=== PATIENT | female | born 1995 ===

== ENCOUNTER 2017-11-25 13:16 | Emergency (ER) | payer OTHER ==
[2017-11-25 13:25] VITALS: BP 132/83
--- NOTE | 2017-11-25 13:59 | UC ---
Throat Pain/Nasal Gunnar HPI - HPI Summary HPI Summary: 22 yo female presents with 1 week of feeling tired and having sinus symptoms. She tells me that about 7-10 days ago she started to feel achy all over and felt generally more tired that usual. About 3-4 days after this began she developed some sinus pain/pressure/congestion that has persisted to today. She endorses some urinary frequency, but no burning or hematuria. Denies fever, chills, sore throat, abdominal pain, n/v/d/c, flank pain, vaginal discharge. - History of Current Complaint Chief Complaint: UCGeneralIllness Stated Complaint: TIRED,BODYACHES Time Seen by Provider: 11/25/17 13:58 Hx Obtained From: Patient Hx Last Menstrual Period: 10/27/17 Onset/Duration: Gradual Onset Severity: Mild Pain Intensity: 3 Pain Scale Used: 0-10 Numeric - Allergies/Home Medications Allergies/Adverse Reactions: Allergies Allergy/AdvReac Type Severity Reaction Status Date / Time No Known Allergies Allergy Verified 11/25/17 13:25 Home Medications: Home Medications [place] 24 Fe Tablet 1 tab PO DAILY 11/25/17 [History Confirmed 11/25/17] PMH/Surg Hx/FS Hx/Imm Hx - Additional Past Medical History Additional PMH: None - Surgical History Surgical History: None - Family History Known Family History: Positive: None - Social History Occupation: Student Lives: Dormitory/Roommates Alcohol Use: Occasionally Substance Use Type: None Smoking Status (MU): Never Smoked Tobacco Review of Systems Constitutional: Fatigue Skin: Negative Eyes: Negative ENT: Nasal Discharge, Sinus Congestion, Sinus Pain/Tenderness Respiratory: Negative Cardiovascular: Negative Gastrointestinal: Negative Genitourinary: Frequency Neurovascular: Negative Neurological: Negative Psychological: Negative All Other Systems Reviewed And Are Negative: Yes Physical Exam - Summary Physical Exam Summary: GENERAL: NAD. WDWN. No pain distress. SKIN: No rashes, sores, lesions, or open wounds. HEENT: Head: AT/NC Eyes: EOM intact. Conjunctiva clear without inflammation or discharge. Ears: Hearing grossly normal. TMs intact, no bulging, erythema, or edema. Nose: Nasal mucosa mildly swollen and erythematous without discharge. TTP maxillary and frontal sinus. Throat: Posterior oropharynx without exudates, erythema, or tonsillar enlargement. Uvula midline. NECK: Supple. Nontender. No lymphadenopathy. CHEST: CTAB. No r/r/w. No accessory muscle use. Breathing comfortably and in no distress. CV: RRR. Without m/r/g. Pulses intact. ABDOMEN: Soft. NTTP. No distention or guarding. No CVA tenderness. Bowel sounds present NEURO: Alert. PSYCH: Age appropriate behavior. Triage Information Reviewed: Yes Vital Signs: Initial Vital Signs Temp 98 F 11/25/17 13:22 Pulse 111 11/25/17 13:22 Resp 16 11/25/17 13:22 BP 132/83 11/25/17 13:22 Pulse Ox 100 11/25/17 13:22 Laboratory Tests 11/25/17 11/25/17 11/25/17 14:26 14:34 14:36 POC Urine Color Dark yellow POC Urine Clarity Clear POC Urine pH 7.0 POC Ur Specif [place] 1.020 POC Urine Protein Negative POC Ur Glucose (UA) Negative POC Urine Ketones Negative POC Urine Blood Trace-intact A POC Urine Nitrite Negative POC Urine Bilirubin Negative POC Urine Urobilinogen 0.2 POC U Leukocyte Esteras 2+ A POC Ur Test Negative Group A Strep Rapid Negative Vital Signs Reviewed: Yes Throat Pain/Nasal Course/Dx - Course Course Of Treatment: UA with leuks, which could explain her symptoms. POC strep negative. Will treat her for sinusitis and UTI with augmentin. F/u if symptoms persist. - Differential Dx/Diagnosis Provider Diagnoses: UTI. Sinusitis Discharge - Sign-Out/Discharge Documenting (check all that apply): Patient Departure All imaging exams completed and their final reports reviewed: No Studies - Discharge Plan Condition: Stable Disposition: HOME Prescriptions: Amoxicillin/Clavulanate TAB* [Augmentin TAB 875*] 875 mg PO BID #14 tab Patient Education Materials: Urinary Tract Infection in Women (DC), Sinusitis ( ED) Referrals: No Primary Care Phys,NOPCP [Primary Care Provider] - Additional Instructions: If you develop a fever, shortness of breath, chest pain, new or worsening symptoms - please call your PCP or go to the ED. - Billing Disposition and Condition Condition: STABLE Disposition: Home
== END 2017-11-25 15:20 | disposition home or self-care (01) ==
LOC: UCEAST 13:16
DX: N39.0 Urinary tract infection, site not specified (principal); J32.9 Chronic sinusitis, unspecified
CPT/HCPCS: 81003; 84702; 87077; 87086; 87651; 99202; G0463

== ENCOUNTER 2019-06-03 12:54 | Emergency (ER) | payer OTHER ==
--- NOTE | 2019-06-03 13:49 | UC ---
Respiratory Complaint HPI - HPI Summary HPI Summary: CHIEF COMPLAINT: cough is getting worse HPI: This is a healthy 23-year-old female with history of cough. Getting worse over last two nights. Worse when lie down. No fever. One month ago mild cough; intermittent. Sore throat last week. Smoking and vaping but quit 3 months ago. No sick contacts. Lives with roommate who is not sick. Besides cough and slight sore throat, slight shortness of breath. No wheezing and not hx of asthma. 5 years ago acetaminophen overdose. Family history is negative for chronic illness. Student at [employer]. No chest pain. VITAL SIGNS REVIEWED. Within normal limits unless noted here.140/80; 99.1 NURSES NOTE REVIEWED. "Pt stated that a month ago she started to have a nagging cough that a couple of days ago became much worse with a small sore throat now. Pt denies any fevers or contact with covid pt. is." - History of Current Complaint Chief Complaint: UCGeneralIllness Stated Complaint: RESP COMPLAINT Time Seen by Provider: 06/03/19 13:40 Hx Obtained From: Patient Hx Last Menstrual Period: 05/20/19 - Allergies/Home Medications Allergies/Adverse Reactions: Allergies Allergy/AdvReac Type Severity Reaction Status Date / Time No Known Allergies Allergy Verified 08/01/18 16:44 Home Medications: Home Medications [place] 24 Fe Tablet 1 tab PO DAILY 11/25/17 [History Confirmed 08/01/18] Albuterol HFA INHALER* [Ventolin HFA Inhaler*] 2 puff INH Q4H PRN #1 mdi [Rx] Azithromyxin CONCETTA (NF) [Z-Concetta (Zithromax) 250 mg tabs #6] 2 tab PO .TODAY, THEN 1 DAILY #6 tab 08/01/18 [Rx] Albuterol HFA INHALER* [Ventolin HFA Inhaler*] 1 - 2 puff INH Q4H #1 mdi [Rx] Inhaler, Assist Devices [Aerochamber Mv] 1 mis XX Q6HR #1 mis MDD 8 06/03/19 [Rx ] PMH/Surg Hx/FS Hx/Imm Hx - Additional Past Medical History Additional PMH: PAST MEDICAL HISTORY- Positive, relevant past medical history: None. Patient denies history of: hypertension, cardiovascular disease, stroke, diabetes, cancer. CHRONIC or RECURRENT HEALTH PROBLEM LIST REVIEWED. VISIT HISTORY REVIEWED. MEDICATIONS & ALLERGIES REVIEWED. HYPERTENSION STATUS: No history of hypertension. FAMILY HISTORY: Patient denies family history of: hypertension, cardiovascular disease, stroke, diabetes, cancer. SOCIAL HISTORY: Smoker: up to 3 months ago. Alcohol: occ Home environment: roommate but not sick Employment: student Previously Healthy: Yes - Surgical History Surgical History: None - Family History Known Family History: Positive: None - Social History Alcohol Use: Occasionally Substance Use Type: None Smoking Status (MU): Former Smoker Type: eCigarettes Review of Systems All Other Systems Reviewed And Are Negative: Yes Respiratory: Positive: Cough - last 2 days; no fever Cardiovascular: Positive: Negative Gastrointestinal: Positive: Negative Genitourinary: Positive: Negative Is Patient Immunocompromised?: No Physical Exam - Summary Physical Exam Summary: 140/80; jngsd=100; 99.1; Pulse ox=98. Appearance: The patient is well-appearing, is in no pain or distress, and is well-nourished. Eyes: Conjunctiva are clear. Pupils are equal and reactive to light and accommodation. Extra ocular muscle movement is intact. ENT: The hearing is grossly normal, the pharynx is normal, and the TMs are normal. There is no muffled or hoarse voice. No stridor. Neck: The neck is supple and there is no lymphadenopathy. Respiratory: The chest is non-tender to palpation and without crepitus. The lungs are clear, there are normal breath sounds, and there is no respiratory distress. No wheezes, rales or rhonchi. Cardiovascular: Heart sounds reveal a regular rate and rhythm. There are no clicks, rubs or murmurs. There are no carotid bruits or thrills. Circulation is grossly intact. Abdomen: The abdomen is soft and nontender. There is no organomegaly. Bowel sounds are present and within normal limits. No point tenderness at McBurneys point. No CVA tenderness. Musculoskeletal: Strength is intact. The patient moves all extremities. Neurological: The patient is alert. Motor and sensory are examination grossly intact. Speech is normal. Psychological: The patient displays age appropriate behavior, and is conversant. GCS=15. Skin: Negative for rashes. Triage Information Reviewed: Yes Vital Signs Reviewed: Yes Respiratory Course/Dx - Course Course Of Treatment: This is a healthy 23-year-old female with history of cough. Getting worse over last two nights. Worse when lie down. No fever. One month ago mild cough ; intermittent. Sore throat last week. Smoking and vaping but quit 3 months ago. No sick contacts. Lives with roommate who is not sick. Besides cough and slight sore throat, slight shortness of breath. No wheezing and no hx of asthma but has used an inhaler when she had bronchitis. 5 years ago acetaminophen overdose. Family history is negative for chronic illness. Student at [employer]. No chest pain. 140/80; ohwfh=725; 99.1; Pulse ox= 98. My diagnosis is bronchitis with bronchospasm. She has slightly elevated systolic blood pressure. In speaking to the patient I believe she has white coat syndrome. Patient will recheck her blood pressure. He decided she would try albuterol and spacer and follow her temperature and respiratory status. She will be reevaluated if she develops chest pain, shortness of breath or fever. - Differential Dx/Diagnosis Differential Diagnosis/HQI/PQRI: Bronchitis, Lower Resp Infection Provider Diagnosis: Bronchospasm with bronchitis, acute Discharge ED - Sign-Out/Discharge Documenting (check all that apply): Patient Departure All imaging exams completed and their final reports reviewed: No Studies - Discharge Plan Condition: Stable Disposition: HOME Prescriptions: Albuterol HFA INHALER* [Ventolin HFA Inhaler*] 1 - 2 puff INH Q4H #1 mdi Inhaler, Assist Devices [Aerochamber Mv] 1 mis XX Q6HR #1 mis MDD 8 Patient Education Materials: Bronchospasm (ED) Referrals: No Primary Care Phys,NOPCP [Primary Care Provider] - Additional Instructions: WE DISCUSSED: PLEASE SEEK CARE AT THE EMERGENCY DEPARTMENT IF SYMPTOMS WORSEN OR IF NEW SYMPTOMS DEVELOP. FOLLOW UP WITH YOUR PRIMARY CARE PHYSICIAN IF CONDITION CONTINUES BEYOND 3 DAYS WITHOUT IMPROVEMENT. YOUR DIAGNOSIS IS: Bronchitis with bronchospasm YOUR PRESCRIPTION RECOMMENDATION IS: Albuterol with spacer; use this to decrease cough and any sense of shortness of breath; use 2 puffs 4 times a day. OTHER INSTRUCTIONS: Hypertension Discharge Instructions: Your blood pressure reading today was 140/80, indicating slight HYPERTENSION. Follow-up with your primary care provider within 4 weeks for blood pressure check and appropriate recommendations and treatment, as needed. You should be 120/80. This reading may be simply related to your illness or anxiety. FOR PAIN AND/OR SLEEP: For pain: Ibuprofen (Motrin and other brand names) 400-600mg PLUS acetaminophen (Tylenol and other brand names) 500mg - 1000mg every 8 hours. DO NOT TAKE IBUPROFEN IF YOU ARE BEING EVALUATED FOR COVID-19. Other information: The most important goal is to liquefy all the phlegm and mucus, and get it out of your head and chest. For sore throat, it is important to keep throat moist and protected. Any illness causing cough, congestion, sore throat or sinus discomfort can be helped by doing the following: To clear you head, sinuses and chest of congestion: stand under a warm shower stream to loosen secretions. Use a vaporizor. Stay away from smoke or irritants. Use saline nasal spray or Neti Pot to keep the flow of mucus from your nostrils and sinuses. For sore throat: drink lots of warm fluids. Tea and honey is particularly useful because the honey can coat protect your throat. Gargle with warm water with 1/2 teaspoon of salt per 8 ounces of water. Gargle for a few seconds and spit out. Repeat every three hours. Keep your throat protected with lozenges. Don't let your throat dry out. Use a vaporizor at night. Make sure to check with your pharmacist if you are taking other prescription medication prior to taking any over the counter medications listed here. DECONGESTANTS: helps relieve stuffiness and clears sinuses. Pseudoephedrine ( Sudafed or generic) is effective but you need to ask the pharmacist for it because it may be kept behind the counter. ANTIHISTAMINES: are not helpful in many colds and flus because they can worsen sore throat, dry eyes and mouth and cause drowsiness. Examples are diphenhydramine, doxylamine and chlorpheniramine. They can help dry you out if you are having profuse, clear drainage from the nose or post-nasal drip. EXPECTORANTS: helps thin mucous in the nose and chest, making it easier to clear the fluid out. Expectorants are in most combination cough/cold remedies and should be taken with plenty of water. Guaifenesin is the most common expectorant and it comes in pill or liquid form. Mucinex is an extended release form of guaifenesin. COUGH SUPPRESSANT: reduces the body's cough reflex. Dextromethorphan is in over the counter products, but sometimes narcotics such as codeine or hydrocodone are used to suppress cough. SPECIFIC MEDICATIONS: The following medicines may help: To help with cough: DEXTROMETHORPHAN (Vicks, Robitussin, Nyquil and other brands) To help break up phlegm: GUAIFENESIN (Mucinex, Robitussin, other brands) To help clear congestion in the nose and sinuses: PSEUDOEPHEDRINE (Sudafed, Dimetapp, other brands) To help clear nasal congestion: AFRIN NASAL SPRAY: 2-3 SPRAYS PER NOSTRIL, TWICE A DAY FOR TWO DAYS ONLY. FLONASE: (or other steroid nasal sprays) can help if your running nose is caused by an allergy. It can help relieve congestion. It is used once a day in each nostril. Check the dose with your pharmacist. FOLLOW-UP: re-check in 10 days if you are not improving. Return here or see your caregiver. RE-CHECK SOONER if you have increased pain, temperature, cough, sinus symptoms, or difficulty breathing or swallowing. Go directly to Emergency Department if symptoms are severe. - Billing Disposition and Condition Condition: STABLE Disposition: Home
[2019-06-03 14:07] VITALS: BP 140/80
== END 2019-06-03 14:47 | disposition home or self-care (01) ==
LOC: UCEAST 12:54
DX: J20.9 Acute bronchitis, unspecified (principal); R03.0 Elevated blood-pressure reading, without diagnosis of hypertension; Z87.891 Personal history of nicotine dependence
CPT/HCPCS: 99211; G0463